=== PATIENT | female | born 1950 | race Caucasian/White ===

== ENCOUNTER → 2019-11-30 11:19 | Outpatient (CLI) | payer MEDICARE, SELFPAY ==
--- NOTE | ~2019-11-30 | DEXA_ITS ---
Bone Density Report Name: Rosaura Odell Age: 69 Sex: Female Ethnicity: White Date of : 1950 Indication: postmenopausal osteoporosis; monitoring treatment; height loss; Referring Provider: KRIS CORBETT Study: Bone densitometry was performed. Exam Date: November 30, 2019 Accession number: [id number] Bone Density: Region BMD T-score Z-score Classification AP Spine (L1-L4) 0.714 -3.0 -1.0 Osteoporosis Femoral Neck (Left) 0.549 -2.7 -0.9 Osteoporosis Total Hip (Left) 0.733 -1.7 -0.2 Osteopenia Femoral Neck (Right) 0.592 -2.3 -0.6 Osteopenia Total Hip (Right) 0.790 -1.2 0.2 Osteopenia Total Hip Mean 0.762 -1.5 0.0 Osteopenia World Health Organization criteria for BMD impression classify patients as: Normal (T-score at or above -1.0), Osteopenia (T-score between -1.0 and -2.5), or Osteoporosis (T-score at or below -2.5). 10-year Fracture Risk: FRAX not reported because: Some T-score for Spine Total or Hip Total or Femoral Neck at or below -2.5 Treated for osteoporosis Previous Exams: Region Exam Age BMD T-score BMD Change BMD Change Date g/cm2 vs Baseline vs Previous AP Spine(L1-L4) 11/30/2019 69 0.714 -3.0 -0.072* -0.013 05/26/2017 66 0.727 -2.9 -0.059* -0.009 05/28/2013 62 0.736 -2.8 -0.050* -0.029* 05/27/2011 60 0.765 -2.6 -0.021 -0.021 04/28/2009 58 0.786 -2.4 Total Hip(Left) 11/30/2019 69 0.733 -1.7 -0.031* -0.009 05/26/2017 66 0.742 -1.6 -0.022 0.003 05/28/2013 62 0.739 -1.7 -0.025 -0.009 05/27/2011 60 0.749 -1.6 -0.016 -0.016 04/28/2009 58 0.764 -1.5 Total Hip(Right) 11/30/2019 69 0.790 -1.2 -0.025 0.013 05/26/2017 66 0.778 -1.3 -0.038* 0.016 05/28/2013 62 0.762 -1.5 -0.054* -0.038* 05/27/2011 60 0.800 -1.2 -0.016 -0.016 04/28/2009 58 0.816 -1.0 *Denotes significance at 95% confidence level, LSC for AP Spine = 0.022 g/cm2, LSC for Total Hip = 0.027 g/cm2 Clinical Information Provided by Patient: Is being treated for osteoporosis Has used the following medications: Fosamax (i.e. alendronate), Calcium, MULTI VIT Patient maximum height was 62 Menopause Age: 50 Drinks caffeinated beverages Onset of menses at age 13 Number of children 6 Crow
== END ==
PROVIDERS: PCP Emergency Medicine; Visit Provider Emergency Medicine
DX: Z78.0 Asymptomatic menopausal state (principal); M81.0 Age-related osteoporosis without current pathological fracture; M85.852 Other specified disorders of bone density and structure, left thigh; M85.851 Other specified disorders of bone density and structure, right thigh
CPT/HCPCS: 77080

== ENCOUNTER → 2022-11-07 11:10 | Outpatient (CLI) | payer MEDICARE, SELFPAY ==
--- NOTE | ~2022-11-07 | DEXA_ITS ---
Bone Density Report Name: DAVID CASTILLO Age: 72 Sex: Female Ethnicity: White Date of : 1950 Indication: postmenopausal osteoporosis; monitoring treatment; height loss; Referring Provider: KRIS CORBETT Study: Bone densitometry was performed. Exam Date: November 07, 2022 Accession number: [id number] Bone Density: Region BMD T-score Z-score Classification AP Spine (L1-L4) 0.709 -3.1 -0.8 Osteoporosis Femoral Neck (Left) 0.546 -2.7 -0.8 Osteoporosis Total Hip (Left) 0.745 -1.6 0.0 Osteopenia Femoral Neck (Right) 0.574 -2.5 -0.5 Osteoporosis Total Hip (Right) 0.791 -1.2 0.4 Osteopenia Total Hip Mean 0.768 -1.4 0.2 Osteopenia World Health Organization criteria for BMD impression classify patients as: Normal (T-score at or above -1.0), Osteopenia (T-score between -1.0 and -2.5), or Osteoporosis (T-score at or below -2.5). 10-year Fracture Risk: FRAX not reported because: Some T-score for Spine Total or Hip Total or Femoral Neck at or below -2.5 Treated for osteoporosis Previous Exams: Region Exam Age BMD T-score BMD Change BMD Change Date g/cm2 vs Baseline vs Previous AP Spine(L1-L4) 11/07/2022 72 0.709 -3.1 -0.077* -0.005 11/30/2019 69 0.714 -3.0 -0.072* -0.013 05/26/2017 66 0.727 -2.9 -0.059* -0.009 05/28/2013 62 0.736 -2.8 -0.050* -0.029* 05/27/2011 60 0.765 -2.6 -0.021 -0.021 04/28/2009 58 0.786 -2.4 Total Hip(Left) 11/07/2022 72 0.745 -1.6 -0.019 0.012 11/30/2019 69 0.733 -1.7 -0.031* -0.009 05/26/2017 66 0.742 -1.6 -0.022 0.003 05/28/2013 62 0.739 -1.7 -0.025 -0.009 05/27/2011 60 0.749 -1.6 -0.016 -0.016 04/28/2009 58 0.764 -1.5 Total Hip(Right) 11/07/2022 72 0.791 -1.2 -0.024 0.001 11/30/2019 69 0.790 -1.2 -0.025 0.013 05/26/2017 66 0.778 -1.3 -0.038* 0.016 05/28/2013 62 0.762 -1.5 -0.054* -0.038* 05/27/2011 60 0.800 -1.2 -0.016 -0.016 04/28/2009 58 0.816 -1.0 *Denotes significance at 95% confidence level, LSC for AP Spine = 0.022 g/cm2, LSC for Total Hip = 0.027 g/cm2 Clinical Information Provided by Patient: Is being treated for osteoporosis Has used the following medications: Fosamax (i.e. alendronate), Vitamin D, Calcium, LEVOTHYROXINE P
== END ==
PROVIDERS: PCP Emergency Medicine; Visit Provider Emergency Medicine
DX: Z78.0 Asymptomatic menopausal state (principal); M81.0 Age-related osteoporosis without current pathological fracture; M85.89 Other specified disorders of bone density and structure, multiple sites
CPT/HCPCS: 77080

== ENCOUNTER → 2023-03-07 09:51 | Outpatient (CLI) | payer MEDICARE, SELFPAY ==
--- NOTE | ~2023-03-07 | US_ITS ---
EXAMINATION: US transvaginal DATE: 03/07/2023 10:15 INDICATION: Abdominal distention Comparison:No prior studies for comparison. TECHNIQUE: Multiple transabdominal and endovaginal sonographic images of the pelvis performed. FINDINGS: The uterus measures 4.7 x 2.2 x 3.5 cm. The endometrial complex measures 3 mm. The ovaries are not visualized. There is no free fluid in the pelvis. There are no abnormal masses seen on either side. IMPRESSION: 1. Unremarkable pelvic ultrasound. Reviewed, dictated and finalized at location B.
== END ==
PROVIDERS: PCP Emergency Medicine; Visit Provider Obstetrics & Gynecology Gynecology
DX: N95.9 Unspecified menopausal and perimenopausal disorder (principal); N84.0 Polyp of corpus uteri
CPT/HCPCS: 76830

== ENCOUNTER 2025-08-04 10:02 | Outpatient (CLI) | payer MEDICARE, SELFPAY ==
--- NOTE | ~2025-08-04 | DEXA_ITS ---
Bone Density Report Name: DAVID CASTILLO Age: 75 Sex: Female Ethnicity: White Date of : 1950 Indication: postmenopausal osteoporosis; monitoring treatment; height loss; Referring Provider: FAVIO CASTILLO Study: Bone densitometry was performed. Exam Date: August 04, 2025 Accession number: [id number] Bone Density: Region BMD T-score Z-score Classification AP Spine(L1-L4) 0.709 -3.1 -0.7 Osteoporosis Femoral Neck (Left) 0.560 -2.6 -0.5 Osteoporosis Total Hip (Left) 0.721 -1.8 0.0 Osteopenia Femoral Neck (Right) 0.562 -2.6 -0.5 Osteoporosis Total Hip (Right) 0.761 -1.5 0.3 Osteopenia Total Hip Mean 0.741 -1.7 0.2 Osteopenia World Health Organization criteria for BMD impression classify patients as: Normal (T-score at or above -1.0), Osteopenia (T-score between -1.0 and -2.5), or Osteoporosis (T-score at or below -2.5). 10-year Fracture Risk: FRAX not reported because: Some T-score for Spine Total or Hip Total or Femoral Neck at or below -2.5 Treated for osteoporosis Previous Exams: -- Region Exam Age BMD T-score BMD Change BMD Change Date g/cm2 vs Baseline vs Previous -- AP Spine (L1-L4) 08/04/2025 75 0.709 -3.1 -9.7%* 0.1% 11/07/2022 72 0.709 -3.1 -9.8%* -0.7% 11/30/2019 69 0.714 -3.0 -9.1%* -1.8% 05/26/2017 66 0.727 -2.9 -7.5%* -1.2% 05/28/2013 62 0.736 -2.8 -6.3%* -3.8%* 05/27/2011 60 0.765 -2.6 -2.6% -2.6% 04/28/2009 58 0.786 -2.4 Total Hip(Left) 08/04/2025 75 0.721 -1.8 -5.7%* -3.3% 11/07/2022 72 0.745 -1.6 -2.5% 1.7% 11/30/2019 69 0.733 -1.7 -4.1%* -1.2% 05/26/2017 66 0.742 -1.6 -2.9% 0.4% 05/28/2013 62 0.739 -1.7 -3.3% -1.3% 05/27/2011 60 0.749 -1.6 -2.0% -2.0% 04/28/2009 58 0.764 -1.5 Total Hip(Right) 08/04/2025 75 0.761 -1.5 -6.7%* -3.8%* 11/07/2022 72 0.791 -1.2 -3.0% 0.1% 11/30/2019 69 0.790 -1.2 -3.1% 1.6% 05/26/2017 66 0.778 -1.3 -4.7%* 2.1% 05/28/2013 62 0.762 -1.5 -6.6%* -4.7%* 05/27/2011 60 0.800 -1.2 -2.0% -2.0% 04/28/2009 58 0.816 -1.0 -- *Denotes significance at 95% confidence level, LSC for AP Spine = 0.022 g/cm2, LSC for Total Hip = 0.027 g/cm2 Clinical Information Provided by Patient: Is being treated for osteoporosis Has used the following medications: Boniva (i.e. ibandronate), Fosamax (i.e. alendronate), Vitamin D, Calcium Patient maximum height was 62 Menopause Age: 50 No regular weight bearing exercise Does not regularly consume dairy products Drinks caffeinated beverages Onset of menses at age 12 Number of children 4 Impression: The patient has osteoporosis, based on the Total Spine T-score. The BMD for the Total Hip(Right) decreased, changing by -3.8% since the last DXA exam. Discussion: SIGNIFICANT BONE LOSS OBSERVED. Adherence to therapy (including calcium and vitamin D intake) should be assessed. If compliance is not a factor, review management and exclusion of secondary causes of bone loss. It is important to ask patients whether they are taking their medications and to encourage continued and appropriate compliance with their osteoporosis therapies to reduce fracture risk. It is also important to review their risk factors and encourage appropriate calcium and vitamin D intakes, exercise, fall prevention and other lifestyle measures. Follow-Up: Consider a repeat BMD and Vertebral Fracture Assessment (VFA) exam in 2 years or sooner if medically necessary, to reassess this patient's status. Reported by: JEREMIE on 08/04/2025 11:04:00 AM. Reviewed, dictated and finalized at location A.
== END 2025-08-04 10:03 | disposition home or self-care (01) ==
LOC: MICIMG 10:03
PROVIDERS: PCP Family Medicine; Visit Provider Family Medicine
DX: M81.0 Age-related osteoporosis without current pathological fracture (principal); M85.852 Other specified disorders of bone density and structure, left thigh; M85.851 Other specified disorders of bone density and structure, right thigh
CPT/HCPCS: 77080